=== PATIENT | male | born 1975 | race Two or more races ===

== ENCOUNTER 2024-06-06 20:32 | Emergency (ER) | payer SELFPAY ==
[2024-06-06 20:42] VITALS: PULSE 102; RESP 20; TEMP 36.9; O2SAT 98
[2024-06-06 20:50] VITALS: BP 189/90
--- NOTE | 2024-06-06 20:57 | XR_ITS ---
Examination: CT abdomen with intravenous contrast CT pelvis with intravenous contrast 2-D coronal reconstructions 2-D sagittal reconstructions Date and time of exam:June 06, 2024 2210 hrs. Indications: Upper abdominal pain today inguinal pain. CTDI: vol (mGy) 18.23 DLP: (mGycm) 851 Technique: Multiple axial sections of the abdomen and pelvis have been obtained. 64 slice high-resolution scanner used. 3 mm axial sections have been obtained, post intravenous injection 60 cc Isovue-370 2-D sagittal, coronal reconstructions obtained. Low dose protocols were performed. One or more of the following dose reduction techniques were used; automated exposure control, adjustment of the mA and/or KV according to patient size, use of iterative reconstruction technique. 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
--- NOTE | 2024-06-06 20:58 | PD.EDRME ---
Rapid Medical Screening Exam E Arrival date/time: 06/06/24 20:32 49M with history of meth use presents to ED with upper ab pain and N/V. Patient states it feels the same as when he was here last time with a diagnosis of hernia with small bowel but no incarceration. Chief Complaint: Abdominal Pain Vital signs: Vital Signs Temperature 98.4 F 06/06/24 20:42 Pulse Rate 102 H 06/06/24 20:42 Respiratory Rate 20 06/06/24 20:42 Pulse Oximetry (%) 98 06/06/24 20:42 Oxygen Delivery Method Room Air 06/06/24 20:42
[2024-06-06 21:38] LABS: Lactate (Lactic Acid) 1.9 mMol/L (0.4-2.0)
[2024-06-06] MEDS: ONDANSETRON INJ 2 MG/ML INJ 2 ML 4 MG IV (21:38)
[2024-06-06 21:44] LABS: Basophils % (Auto) 0 % (0-2.5); Eosinophils # (Auto) 0.1 Thou/mm3 (0.0-0.5); Eosinophils % (Auto) 1 % (0-10); Hemoglobin 14.9 g/dL (13.5-16.0); Immature Granulocytes % (Auto) 0 % (0-0); Immature Granulocytes Auto 0.04 Thou/mm3 (0.00-0.00); Lymphocytes # (Auto) 0.8 Thou/mm3 (1.0-4.8); Lymphocytes % (Auto) 8 % (10-50); Mean Corpuscular HGB Conc 34.7 g/dl (31.0-37.0); Mean Corpuscular Hemoglobin 29.2 pg (25.0-35.0); Mean Corpuscular Volume 84 fL (80-100); Monocytes # (Auto) 0.5 Thou/mm3 (0.0-0.8); Monocytes % (Auto) 4 % (0-12); Neutrophils # (Auto) 9.3 Thou/mm3 (1.8-7.7); Neutrophils % (Auto) 86 % (37-80); Nucleated Red Blood Cell % 0 /100 WBC (0); Platelet Count 321 Thou/mm3 (140-440); RDW Standard Deviation 37.7 fL (35.1-43.9); Red Blood Count 5.11 Miln/mm3 (4.50-5.90); White Blood Count 10.7 Thou/mm3 (3.8-10.6)
[2024-06-06 22:03] LABS: Carbon Dioxide 28.3 mMol/L (20.0-31.0); Chloride 103 mMol/L (98-107); Potassium 3.8 mMol/L (3.4-5.1); Sodium 138 mMol/L (136-145)
[2024-06-06 22:04] LABS: Alanine Aminotransferase 26 U/L (10-49); Albumin, Serum 4.9 gm/dL (3.5-5.0); Alkaline Phosphatase 94 U/L (46-116); Anion Gap 7 (7-16); Aspartate Amino Transferase 21 U/L (0-34); BUN/Creatinine Ratio 12 Ratio (12-20); Bilirubin,Total 0.6 mg/dL (0.3-1.2); Blood Urea Nitrogen 16 mg/dL (9-23); Calcium 10.2 mg/dL (8.3-10.6); Calcium (Corrected) 10.2 mg/dL (8.5-10.1); Creatinine (Component) 1.3 mg/dL (0.6-1.3); Globulin 2.5 gm/dL (2.3-3.5); Glucose 130 mg/dL (74-106); Lipase 34 U/L (12-53); Osmolality,Calculated 278 (275-295); Total Protein 7.4 gm/dL (5.7-8.2); eGFR > 60 See Note
[2024-06-06] MEDS: MORPHINE SULF INJ 10 MG/ML VIAL 5 MG IVP (22:06)
--- NOTE | 2024-06-06 23:06 | EKG_ITS ---
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
[2024-06-06 23:30] LABS: Troponin I < 0.020 ng/mL (0.0-0.045)
--- NOTE | 2024-06-07 01:16 | EDNOTE_ITS ---
ED Abdominal Pain RME/HPI General Chief Complaint: Abdominal Pain Stated complaint: Upper abdominal Pain Arrival date/time: 06/06/24 20:32 RME / HPI RME / HPI narrative: 06/06/24 20:32 49M with history of meth use presents to ED with upper ab pain and N/V. Patient states it feels the same as when he was here last time with a diagnosis of hernia with small bowel but no incarceration. ----- Dr. Pitts?s Main ED Evaluation: 49yo male presents to the ED for a chief complaint of epigastric pain x yesterday. Patient states he started having epigastric pain after eating rice. He endorses associated nausea, vomiting, and sweating. He denies any diarrhea, cough, fever, chills, UTI symptoms or any other associated symptoms. Denies any history of similar symptoms. Denies any PSH. No known allergies. Related Data Previous Rx's ?Medication ?Instructions ?Recorded etodolac 400 mg tablet 400 mg PO Q12H PRN pain #30 tabs 04/30/24 Allergies Allergy/AdvReac Type Severity Reaction Status Date / Time No Known Allergies Allergy Verified 04/30/24 14:43 Review of Systems Review of Systems Systems Reviewed: All systems reviewed, normal except as documented Past Medical History Past Medical History CARDIAC: Negative Cardiac Disorders RESPIRATORY: Negative Asthma GENITOURINARY: Negative Renal Disease ENDOCRINE: Negative Diabetes Mellitus Type 2 HEMATOLOGIC: Negative Sickle Cell Disease Social History SMOKING STATUS: Former smoker ED Exam Narrative Physical exam: GENERAL APPEARANCE: alert and oriented x 4, well-developed, well-nourished, no acute distress VITALS: All vitals were reviewed and the pulse ox is 98% on room air, which is normal according to my interpretation. HEENT: Normocephalic, atraumatic; pupils equal, round, reactive to light; EOMI; mucous membranes pink, moist; oropharynx clear NECK: Supple LUNGS: CTABL; no wheezes, no rales, no rhonchi HEART: Regular rate, regular rhythm; normal S1, S2; no murmurs ABDOMEN: non distended; normal BS; soft, no tenderness, no guarding, no rebound; no masses, no organomegaly, no hernia BACK: no CVA tenderness EXTREMITIES: atraumatic; no edema NEUROLOGIC: awake; alert and oriented x4; cranial nerves II-XII grossly intact; no focal sensory or motor deficits PSYCHIATRIC: appropriate mood and affect SKIN: warm, dry, normal color; no rashes Course Quality Measures none Orders Category Date Time Status CT Screening NOW Care 06/06/24 20:58 Completed EKG (ED ONLY) *Do not use* NOW Care 06/06/24 23:06 Completed Insert IV NOW Care 06/06/24 20:[address] abdomen pelvis w con Stat Exams 06/06/24 20:57 Completed EKG (ED Only) Stat Exams 06/06/24 23:06 Draft CBC Stat Lab 06/06/24 21:14 Completed CMP [Comprehensive Metabolic Panel] Stat Lab 06/06/24 21:14 Completed Lactate (Lactic Acid) Stat Lab 06/06/24 21:14 Completed Lipase Stat Lab 06/06/24 21:14 Completed Troponin I Stat Lab 06/06/24 21:14 Completed Morphine Inj Med 06/06/24 21:59 Discontinued 5 mg IVP X1 ONE Ondansetron Inj [Zofran Inj] Med 06/06/24 20:57 Discontinued 4 mg IV X1 ONE Vital Signs Vital signs: Vital Signs Temperature 98.4 F 06/06/24 20:42 Pulse Rate 102 H 06/06/24 20:42 Respiratory Rate 20 06/06/24 20:42 Pulse Oximetry (%) 98 06/06/24 20:42 Oxygen Delivery Method Room Air 06/06/24 20:42 Abdominal Pain MDM Patient data External records reviewed:: [facility] previous records (Per chart review, patient was seen here on 04/30/24 for amphetmine use.) Clinical information provided by:: patient Social determinants that could affect healthcare access:: substance use (history of amphetamine use) Patient has the following chronic illnesses:: none How is presenting disease/condition affected by chronic disease/condition?: no chronic disease Evaluation data The following diagnostics were reviewed and interpreted by me:: lab results, radiology exam(s) and EKG tracing(s) Lab and/or radiology exams considered but not ordered:: none Interpretation Summary: CBC is normal, CMP is normal, Troponin is normal, Lipase is normal, UA is unremarkable, according to my interpretation. EKG done at 2309, NSR, rate of 66, normal axis, no ectopy, no acute ischemic changes, according to my interpretation. ---- [facility] Report Signed Patient: CASTRO PHILLIPS Record#: [id number] Birthdate: 1975 Age/Sex: 49 / M Location: [facility] Attending Dr: Ordering Physician: Marlon Alexander PA-C Date of Service: 06/06/24 Procedure(s): CT abdomen pelvis w con Accession Number(s): [id number] cc: Jn Bateman MD; NO PRIMARY/FAMILY,PHYSICIAN; Marlon Alexander PA-C~ Examination: CT abdomen with intravenous contrast CT pelvis with intravenous contrast 2-D coronal reconstructions 2-D sagittal reconstructions Date and time of exam:June 06, 2024 2210 hrs. Indications: Upper abdominal pain today inguinal pain. CTDI: vol (mGy) 18.23 DLP: (mGycm) 851 Technique: Multiple axial sections of the abdomen and pelvis have been obtained. 64 slice high-resolution scanner used. 3 mm axial sections have been obtained, post intravenous injection 60 cc Isovue-370 2-D sagittal, coronal reconstructions obtained. Low dose protocols were performed. One or more of the following dose reduction techniques were used; automated exposure control, adjustment of the mA and/or KV according to patient size, use of iterative reconstruction technique. 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 Dictated By: Jn Bateman MD Signed By: <Electronically signed by Jn Bateman MD in OV> 06/06/24 1272 Medications / Prescriptions Medications or Prescriptions considered but not ordered:: none Medication administrations:: Medication Administration History Discontinued Medications Morphine Sulfate (Morphine Sulf Inj 10 Mg/Ml Vial) 5 mg IVP X1 ONE Stop: 06/06/24 22:00 Last Admin: 06/06/24 22:06 Dose: 5 mg Documented By: DB Ondansetron HCl (Ondansetron Inj 2 Mg/Ml Inj 2 Ml) 4 mg IV X1 ONE; Protocol Stop: 06/06/24 20:58 Last Admin: 06/06/24 21:38 Dose: 4 mg Documented By: JONATHAN see above Consultations Consultation(s) initiated? (list below): No Diagnosis Differential diagnosis abdominal pain: diverticulitis and other (gastritis, cholelithiasis, cholecystitis) Most likely diagnosis given after review of the tests above:: see below Admission Indicated Admission indicated?: not indicated Admission Request Was there a request for admission?: No Disposition Plan Disposition Plan: Discharge Discharge Attestation Discharge Attestation: The patient and all family members were given an opportunity to ask questions and understood the discharge instructions. Discharge instructions specifically effects, indications for sooner follow up or return to the emergency department, and the expected course of current diagnosis. Patient condition: Stable Discharge Plan Plan Patient Disposition: HOME (Self Care) Disposition Comment: Stable for discharge Patient condition on transfer: Stable Prescriptions/Referrals Prescriptions/Med Rec: No Action etodolac 400 mg tablet 400 mg PO Q12H PRN (Reason: pain) Qty: 30 0RF Referrals: No Primary/Family,Physician [Primary Care Provider] - In 1 week Problem List Clinical Impression: Abdominal pain, Vomiting Patient/Caregiver Discharge Instructions Discharge Activity: activity as tolerated Education Materials: Abdominal Pain, Nausea Vomit Control Additional Instructions: Please return to the emergency department for any worsening or any further medical problems You should especially return if you notice any increase in your abdominal pain, the pain shoots to your chest or your back, or if you wind up vomiting so much that you are unable to keep fluids down. Otherwise you should follow-up with your primary care doctor within the next several days Print Language: Mozambican Stand Alone Forms: Lisa Award Info., Patient Portal Info Letter
== END 2024-06-07 02:07 | disposition home or self-care (01) ==
PROVIDERS: Physician Assistant; Emergency Provider Emergency Medicine
DX: K42.9 Umbilical hernia without obstruction or gangrene (principal); K40.90 Unilateral inguinal hernia, without obstruction or gangrene, not specified as recurrent; M48.07 Spinal stenosis, lumbosacral region; R10.13 Epigastric pain
CPT/HCPCS: 36415; 74177; 80053; 83605; 83690; 84484; 85025; 93005; 96374; 99285; A4649; J2270; J2405; Q9967